=== PATIENT | male | born 1990 | race Two or more races ===

== ENCOUNTER 2024-03-04 21:26 | Emergency (ER) | payer SELFPAY ==
[~2024-03-04] VITALS: Ht 175.3 cm; Wt 74.8 kg
[2024-03-04 21:52] VITALS: BP 136/84; TEMP 98.2; O2SAT 99
== END 2024-03-04 22:27 | disposition left against medical advice (07) ==
LOC: ER 21:29
DX: Z00.00 Encounter for general adult medical examination without abnormal findings (principal)